=== PATIENT | male | born 1980 | race Caucasian/White ===

== ENCOUNTER → 2018-02-19 | Outpatient (CLI) | payer OTHER ==
--- NOTE | 2018-02-19 15:46 | XR ---
EXAMINATION TYPE: XR hand complete RT DATE OF EXAM: 02/19/2018 CLINICAL HISTORY: pain TECHNIQUE: Frontal, lateral and oblique images of the right hand are obtained. COMPARISON: None. FINDINGS: Displaced subungual tuft fracture right fifth digit. Soft tissue injury noted. No radiopaqu e body identified. IMPRESSION: Displaced subungual tuft fracture right fifth digit. ICD 10 FRACTURE, INITIAL EVALUATION
== END | disposition home or self-care (01) ==
LOC: RADXRMAIN 15:31
PROVIDERS: ATTEND Emergency Medicine
DX: S62.636A Displaced fracture of distal phalanx of right little finger, initial encounter for closed fracture (principal)